=== PATIENT | female | born 1985 | race African-American/Black ===

== ENCOUNTER 2017-08-12 21:14 | Emergency (ER) | payer OTHER ==
[2017-08-12 21:55] VITALS: BP 148/82; PULSE 99; TEMP 98.1; BMI 27.4
--- NOTE | 2017-08-12 21:55 | PDOC ---
Rapid Medical Evaluation Time Seen by Provider: 08/12/17 21:49 Medical Evaluation: Allergies Allergy/AdvReac Type Severity Reaction Status Date / Time No Known Allergies Allergy Verified 05/11/16 17:07 I have performed a brief in-person evaluation of this patient. The patient presents with a chief complaint of: sore throat radiating to left ear x 3 days Pertinent physical exam findings: b/l tonsillar erythema and edema with exudate. Tender anterior cervical lymphadenopathy. I have ordered the following: None. Will discharge to home with rx for Pen VK to treat clinically diagnosed strep. Pt instructed to continue gargling with salt water, take Motrin for pain and eat soft foods until feeling better. The patient will proceed to the ED for further evaluation. Discharge Disposition - Diagnosis Strep pharyngitis - Discharge Dispostion Disposition: HOME Condition at time of disposition: Good - Referrals Referrals: Joseline Eastman [Primary Care Provider] - - Patient Instructions Printed Discharge Instructions: DI for Strep Throat Additional Instructions: Discharge Instructions: -A prescription was sent to your pharmacy to treat strep throat; please take entire course of antibiotics. -Continue gargling with warm salt water -Take Motrin for pain if needed -Eat soft/cold foods -Throw away your toothbrush and get a new one -Return to the ER with any worsening or concerning symptoms - Post Discharge Activity
== END 2017-08-12 22:06 | disposition home or self-care (01) ==
LOC: JERFT 21:14
DX: J02.0 Streptococcal pharyngitis (principal); B95.5 Unspecified streptococcus as the cause of diseases classified elsewhere
CPT/HCPCS: 99281-25

== ENCOUNTER 2018-04-10 13:49 | Emergency (ER) | payer OTHER ==
[2018-04-10 13:59] VITALS: BP 147/80; PULSE 110; TEMP 98.4; BMI 26.6
--- NOTE | 2018-04-10 15:25 | PDOC ---
History of Present Illness - General Chief Complaint: Pain Stated Complaint: ABD PAIN Time Seen by Provider: 04/10/18 15:01 - History of Present Illness Initial Comments: 04/10/18 15:23 33 yo F with no significant pmh who p/w mid-abdominal pain. Patient reports two days of nausea with intermittent bilious, non bloody vomiting, and multiple episodes of loose watery stool. No BPR. + Decreased PO intake. Also endorses 2 days of crampy, intermittent, mid abdominal and mid epigastria pain, with no identifiable triggers or alleviators. Patient denies F,C, CP, SOB, urinary complaints, hematuria, vaginal bleeding, discharge, constipation, lightheadedness, weakness, sensory changes. PMHx: as noted above. Denies h/o abdominal surgeries. ROS: as noted SHx: Denies Etoh, tobacco, IVDA. Allergies: NKDA Past History - Past Medical History Allergies/Adverse Reactions: Allergies Allergy/AdvReac Type Severity Reaction Status Date / Time No Known Allergies Allergy Verified 04/10/18 13:59 Home Medications: Ambulatory Orders Penicillin V Potassium [Pen Vee K -] 500 mg PO BID #20 tablet 08/12/17 Mag Hydrox/Al Hydrox/Simeth [Mylanta *Suspension*] 30 ml PO Q6H #6 cup MDD 30 ml 04/10/18 Ranitidine HCl [Zantac] 150 mg PO PRN PRN 14 Days #28 tablet MDD 2 tab 04/10/18 COPD: No - Suicide/Smoking/Psychosocial Hx Smoking Status: Yes Smoking History: Former smoker Have you smoked in the past 12 months: No Number of Cigarettes Smoked Daily: 3 If you are a former smoker, when did you quit?: 2017 Information on smoking cessation initiated: No Hx Alcohol Use: No Drug/Substance Use Hx: No Review of Systems - Review of Systems Comments:: 04/10/18 15:24 GENERAL/CONSTITUTIONAL: No fever or chills. No weakness. HEAD, EYES, EARS, NOSE AND THROAT: No change in vision. No ear pain or discharge. No sore throat. CARDIOVASCULAR: No chest pain or shortness of breath RESPIRATORY: No cough, wheezing, or hemoptysis. GASTROINTESTINAL: + Abdominal pain, nausea/vomiting, and diarrhea. No constipation. GENITOURINARY: No dysuria, frequency, or change in urination. MUSCULOSKELETAL: No joint or muscle swelling or pain. No neck or back pain. SKIN: No rash NEUROLOGIC: No headache, vertigo, loss of consciousness, or change in strength/ sensation. ENDOCRINE: No increased thirst. No abnormal weight change HEMATOLOGIC/LYMPHATIC: No anemia, easy bleeding, or history of blood clots. ALLERGIC/IMMUNOLOGIC: No hives or skin allergy. *Physical Exam - Vital Signs Last Vital Signs Temp Pulse Resp BP Pulse Ox 98.4 F 110 H 20 147/80 99 04/10/18 13:57 04/10/18 13:57 04/10/18 13:57 04/10/18 13:57 04/10/18 13:57 - Physical Exam Comments: 04/10/18 15:24 GENERAL: Awake, alert, and fully oriented, in no acute distress HEAD: No signs of trauma, normocephalic, atraumatic EYES: PERRLA, EOMI, sclera anicteric, conjunctiva clear ENT: Hearing grossly normal, nares patent, oropharynx clear without exudates. Moist mucosa NECK: Normal ROM, supple, no lymphadenopathy, JVD, or masses LUNGS: No distress, speaks full sentences, clear to auscultation bilaterally HEART: Regular rate and rhythm, normal S1 and S2, no murmurs, rubs or gallops, peripheral pulses normal and equal bilaterally. ABDOMEN: Soft, nontender, normoactive bowel sounds. No guarding, no rebound. No masses. Neg CVA ttp. EXTREMITIES : Normal inspection, Normal range of motion, no edema. No clubbing or cyanosis. SKIN: Warm, Dry, normal turgor, no rashes or lesions noted ED Treatment Course - LABORATORY CBC & Chemistry Diagram: 04/10/18 16:25 04/10/18 16:25 Medical Decision Making - Medical Decision Making 04/10/18 15:54 33 yo F with no significant pmh who p/w mid-abdominal pain, and nausea. HR 110, vtials otherwise wnl, AF. Benign abdominal exam. Low suspiicon SBO. Possible gastritis, esophagitis, biliary pathology. Low suspicion appendicitis, pancreatitis, colitis, diverticulitis, urinary pathology, mesenteric ischemia, AAA. Will provide pain control, antiemetic control, and IVF hydration. ED Course: CBC,CMP, Lipase, Trop, HCG, UA EKG Famotidine, Zofran, Maloox, Carafate, Tylenol 04/10/18 16:56 Mylanta and Ranitidine sent to pharmacy. CBC: Unremarkable 04/10/18 17:04 CMP: Unremarkable HCG: Neg Patient stable for d/c with return precautions. Advised to f/u with PMD and GI. *DC/Admit/Observation/Transfer Diagnosis at time of Disposition: Epigastric abdominal pain - Discharge Dispostion Disposition: ELOPED Condition at time of disposition: Stable Decision to Admit order: No - Prescriptions Prescriptions: Mag Hydrox/Al Hydrox/Simeth [Mylanta *Suspension*] 30 ml PO Q6H #6 cup MDD 30 ml Ranitidine HCl [Zantac] 150 mg PO PRN PRN 14 Days #28 tablet MDD 2 tab PRN Reason: Indigestion - Referrals Referrals: Afshin Eastman MD [Primary Care Provider] - Koko Rowell MD [Staff Physician] - - Patient Instructions Printed Discharge Instructions: DI for Dyspepsia Additional Instructions: Please return to the emergency department with any new or worsening symptoms or concerns. Please follow up with your primary care physician within 72 hours. Please follow up with gastroenteroology within one week. Please take Mylanta and Ranitidine as needed for symptoms. - Post Discharge Activity - Attestations Physician Attestion: 04/10/18 16:57 I attest to the information provided in this note.
[2018-04-10] MEDS ORDERED: ACETAMINOPHEN 1000 MG/100 ML VIAL (NON FORMULARY) IVPB ONE (15:47)
[2018-04-10] MEDS ORDERED: SODIUM CHLORIDE 1,000 ML IV STA (15:47)
[2018-04-10] MEDS ORDERED: FAMOTIDINE 20 MG/50 ML IVPB 20 MG/50 ML MG IVPB ONE ×2 (15:47→16:05)
[2018-04-10] MEDS ORDERED: SUCRALFATE 1 GM TABLET (FP) PO ONE (15:47)
[2018-04-10] MEDS ORDERED: MAG HYDROX/AL HYDROX/SIMETH 30 ML UNIT-DOSE CUP PO ONE (15:47)
[2018-04-10] MEDS ORDERED: ONDANSETRON 4 MG/2 ML VIAL IVPB ONE (15:54)
[2018-04-10] MEDS ORDERED: ONDANSETRON 4 MG/2 ML VIAL ONE (16:05)
[2018-04-10] MEDS ORDERED: ACETAMINOPHEN INJECTION 100 ML IVPB ONE (16:05)
[2018-04-10] MEDS ORDERED: SUCRALFATE 1 GM TABLET (FP) ONE (16:05)
[2018-04-10] MEDS ORDERED: MAG HYDROX/AL HYDROX/SIMETH 30 ML UNIT-DOSE CUP ONE (16:05)
[2018-04-10 16:34] LABS: BASO % 0.8 % (0-2.0); EOS % 0.8 % (0-4.5); HEMATOCRIT 37.5 % (32.4-45.2); HEMOGLOBIN 13.1 GM/dL (10.7-15.3); MCH 32.8 pg (25.7-33.7); MCHC 34.8 g/dl (32.0-36.0); MEAN CELL VOLUME 94.1 fl (80-96); MEAN PLT VOLUME 8.1 fl (7.5-11.1); NEUT % 62.4 % (42.8-82.8); PLATELET COUNT 217 K/MM3 (134-434); RBC 3.99 M/mm3 (3.60-5.2); RDW 12.6 % (11.6-15.6)
[2018-04-10 16:38] LABS: HCG,QUALITATIVE URINE Negative
--- NOTE | 2018-04-10 16:57 | PDOC ---
Attending Attestation - Resident Resident Name: Christopher Sawant - ED Attending Attestation I have performed the following: I have examined & evaluated the patient, The case was reviewed & discussed with the resident, I agree w/resident's findings & plan, Exceptions are as noted - HPI HPI: 04/10/18 16:53 33-year-old female with no past medical history presents with 2 days of nausea, vomiting, diarrhea. Patient reports associated abdominal cramping but denies abdominal pain now. No fevers or chills. Patient ate some spaghetti which she thinks may have made her sick. Currently denies recent travels, recent travels or recent sick contacts. - Physicial Exam PE: 04/10/18 16:55 GENERAL: Awake, alert, and fully oriented, in no acute distress HEAD: No signs of trauma EYES: EOMI, sclera anicteric, conjunctiva clear ENT: Auricles normal inspection, hearing grossly normal, nares patent NECK: Normal ROM, supple ABDOMEN: Soft, nontender, No guarding, no rebound. No masses EXTREMITIES: Normal range of motion, no edema. No clubbing or cyanosis. No cords, erythema, or tenderness NEUROLOGICAL: Cranial nerves II through XII grossly intact. Normal speech, normal gait SKIN: Warm, Dry, normal turgor, no rashes or lesions noted. - Medical Decision Making 04/10/18 16:56 Vital Signs Temp Pulse Resp BP Pulse Ox 98.4 F 110 H 20 147/80 99 04/10/18 13:57 04/10/18 13:57 04/10/18 13:57 04/10/18 13:57 04/10/18 13:57 I suspect patient likely has food poisoning versus gastroenteritis. Patient's abdomen is nontender. Give IV fluids and obtain blood work. Membranes test negative. His workup is unremarkable, patient can go home with supportive care and follow-up with primary care physician. 04/10/18 17:37 CBC, BMP 04/10/18 16:25 04/10/18 16:25 CMP Sodium 142 mmol/L (136-145) 04/10/18 16:25 Potassium 3.8 mmol/L (3.5-5.1) 04/10/18 16:25 Chloride 108 mmol/L (98-107) H 04/10/18 16:25 Carbon Dioxide 26 mmol/L (21-32) 04/10/18 16:25 Anion Gap 8 MMOL/L (8-16) 04/10/18 16:25 BUN 8 mg/dL (7-18) 04/10/18 16:25 Creatinine 0.7 mg/dL (0.55-1.02) 04/10/18 16:25 Creat Clearance w eGFR > 60 (>60) 04/10/18 16:25 Random Glucose 114 mg/dL (74-106) H 04/10/18 16:25 Calcium 8.8 mg/dL (8.5-10.1) 04/10/18 16:25 Total Bilirubin 0.3 mg/dL (0.2-1.0) 04/10/18 16:25 AST 10 U/L (15-37) L 04/10/18 16:25 ALT 14 U/L (12-78) 04/10/18 16:25 Alkaline Phosphatase 46 U/L (45-117) 04/10/18 16:25 Troponin I < 0.02 ng/ml (0.00-0.05) 04/10/18 16:25 Total Protein 7.5 g/dl (6.4-8.2) 04/10/18 16:25 Albumin 4.0 g/dl (3.4-5.0) 04/10/18 16:25 Lipase 194 U/L (73-393) 04/10/18 16:25 Urine Test Results Urine Color Ltyellow 04/10/18 16:25 Urine Appearance Clear 04/10/18 16:25 Urine pH 6.0 (5.0-8.0) 04/10/18 16:25 Ur Specific [place] 1.008 (1.001-1.035) 04/10/18 16:25 Urine Protein Negative (NEGATIVE) 04/10/18 16:25 Urine Glucose (UA) Negative (NEGATIVE) 04/10/18 16:25 Urine Ketones Negative (NEGATIVE) 04/10/18 16:25 Urine Blood Negative (NEGATIVE) 04/10/18 16:25 Urine Nitrite Negative (NEGATIVE) 04/10/18 16:25 Urine Bilirubin Negative (<2.0 mg/dL) 04/10/18 16:25 Ur Leukocyte Esterase Negative (NEGATIVE) 04/10/18 16:25
[2018-04-10 17:03] LABS: ALK PHOS 46 U/L (45-117); ANION GAP 8 MMOL/L (8-16); BILIRUBIN,TOTAL 0.3 mg/dL (0.2-1.0); BLOOD UREA NITROGEN 8 mg/dL (7-18); CALCIUM 8.8 mg/dL (8.5-10.1); CHLORIDE 108 mmol/L (98-107); CO2 26 mmol/L (21-32); CREATININE 0.7 mg/dL (0.55-1.02); GLUCOSE,RANDOM 114 mg/dL (74-106); POTASSIUM 3.8 mmol/L (3.5-5.1); SGOT/AST 10 U/L (15-37); SGPT/ALT 14 U/L (12-78); SODIUM 142 mmol/L (136-145); TOT PROT 7.5 g/dl (6.4-8.2)
[2018-04-10 17:09] LABS: LIPASE 194 U/L (73-393)
[2018-04-10 17:29] LABS: URINE APPEARANCE CLEAR; URINE BILIRUBIN NEGATIVE (<2.0 mg/dL); URINE COLOR LTYELLOW; URINE GLUCOSE (UA) NEGATIVE (NEGATIVE); URINE KETONE NEGATIVE (NEGATIVE); URINE LEUK ESTERASE NEGATIVE (NEGATIVE); URINE NITRITE NEGATIVE (NEGATIVE); URINE PROTEIN NEGATIVE (NEGATIVE); URINE UROBILINOGEN NEGATIVE mg/dL (0.2-1.0)
== END 2018-04-10 17:45 | disposition left against medical advice (07) ==
LOC: JER 13:49
PROC: 3E033GC Introduction of Other Therapeutic Substance into Peripheral Vein, Percutaneous Approach (ICD-10-PCS; principal; 2018-04-10)
PROC: 3E033GC Introduction of Other Therapeutic Substance into Peripheral Vein, Percutaneous Approach (ICD-10-PCS; 2018-04-10)
PROC: 3E033NZ Introduction of Analgesics, Hypnotics, Sedatives into Peripheral Vein, Percutaneous Approach (ICD-10-PCS; 2018-04-10)
DX: R10.13 Epigastric pain (principal)
CPT/HCPCS: 36415; 80053; 81003; 83690; 84484; 84703; 85025; 96365; 96375; 99282-25; J0131; J7030

== ENCOUNTER 2018-08-05 21:52 | Emergency (ER) | payer OTHER ==
[2018-08-05 22:05] VITALS: BP 138/80; PULSE 96; TEMP 98.1; BMI 27.4
--- NOTE | 2018-08-05 22:34 | PDOC ---
Attending Attestation - HPI HPI: 08/05/18 22:49 The patient is a 33 year old female, with no significant past medical history, who presents to the emergency department with nausea, vomiting, and diarrhea since 12pm today. She states the symptoms progressed gradually since onset with nausea being the initial symptom. She reports 3 episodes of emesis. She denies blood in the emesis or diarrhea. She reports associated chills. She states her coworkers have been sick with similar symptoms. LMP Jul 11, 2018. The patient denies chest pain, shortness of breath, headache and dizziness. The patient denies fever, and constipation. The patient denies dysuria, frequency, urgency and hematuria. Allergies: NKDA - Physicial Exam PE: 08/05/18 22:49 Constitutional: (+) tearful. Awake, alert, oriented. No acute distress. Head: Normocephalic. Atraumatic Eyes: PERRL. EOMI. Conjunctivae are not pale. ENT: Mucous membranes are moist and intact. Posterior pharynx without exudates or erythema. Uvula midline. Neck: Supple. Full ROM. No lymphadenopathy. Cardiovascular: (+) tachycardic rate. Regular rhythm. S1, S2 regular. Distal pulses are 2+ and symmetric. Pulmonary/Chest: No evidence of respiratory distress. Clear to auscultation bilaterally No wheezing, rales or rhonchi. Abdominal: Soft and non-distended. There is no tenderness. No rebound, guarding or rigidity. No organomegaly. No palpable masses. Good bowel sounds. Back: No CVA tenderness. Musculoskeletal: No edema. No cyanosis. No clubbing. Full range of motion in all extremities. Nocalf tenderness. Radial/pedal pulses are intact and 2+ bilaterally Skin: Skin is warm and dry. No petechiae. No purpura. Neurological: Alert and oriented to person, place, and time. Cranial nerves II -XII are grossly intact. Normal speech. Strength is grossly symmetric. No sensory deficits. Psychiatric: Good eye contact. Normal interaction, affect and behavior. - Medical Decision Making 08/05/18 22:50 Documentation prepared by Rosalee Suresh, acting as medical supply technician for Corrina Lucas DO, <Rosalee Suresh - Last Filed: 08/05/18 22:57> - Resident Resident Name: Juan Pablo Mabry - ED Attending Attestation I have performed the following: I have examined & evaluated the patient, The case was reviewed & discussed with the resident, I agree w/resident's findings & plan, Exceptions are as noted - Medical Decision Making 08/05/18 22:33 I, Dr. Corrina Lucas, DO, attest that this document has been prepared under my direction and personally reviewed by me in its entirety. I further attest, that it accurately reflects all work, treatment, procedures and medical decision -making performed by me. 08/05/18 23:02 a/p: 33yo female with n/v and diarrhea today -other sick contacts at her job -all symptoms started today - first with diarrhea and then n/v tonight -no abd pain -suspect viral gastroenteritis -will send labs, hydrate, zofran -abd is soft and nontender -will monitor and reassess 08/06/18 00:52 pt feeling much better no nausea or vomiting discussed lab results stable for d/c to home discussed all reasons to return to the Ed abd soft, nt <Corrina Lucas - Last Filed: 08/06/18 00:55> *DC/Admit/Observation/Transfer - Discharge Dispostion Decision to Admit order: No <Corrina Lucas - Last Filed: 08/06/18 00:55> Diagnosis at time of Disposition: Nausea Vomiting Qualifiers: Vomiting type: unspecified Vomiting Intractability: unspecified Nausea presence : unspecified Qualified Code(s): R11.10 - Vomiting, unspecified - Discharge Dispostion Disposition: HOME Condition at time of disposition: Stable - Prescriptions Prescriptions: Cephalexin [Keflex] 500 mg PO BID #6 capsule Famotidine [Pepcid -] 20 mg PO DAILY #14 tablet Ondansetron [Zofran Odt -] 4 mg SL TID PRN #15 od.tablet PRN Reason: Nausea - Referrals Referrals: Joseline Eastman [Primary Care Provider] - - Patient Instructions Printed Discharge Instructions: DI for Vomiting -- Adult, DI for Nausea -- Adult Additional Instructions: you were seen in the emergency department for the evaluation of your nausea, vomiting, and diarrhea. your labs were within normal limits and your urine showed an infection. we gave you fluids and anti-nausea medications in the department. please follow up with your primary medical doctor within 1 week after discharge for follow up care and management. please return to the emergency department if you have fevers and chills with urinary pain, new abdominal pain with fevers and chills, and uncontrollable nausea and vomiting. thank you. Please drink plenty of clear liquids for the first 24 hours and then a bland diet of bananas, rice, apple sauce, and toast - Post Discharge Activity
--- NOTE | 2018-08-05 22:38 | PDOC ---
History of Present Illness - General Chief Complaint: Nausea/Vomiting Stated Complaint: VOMITING/DIARRHEA Time Seen by Provider: 08/05/18 22:25 History Source: Patient Exam Limitations: No Limitations - History of Present Illness Initial Comments: 08/05/18 22:46 33 yo F with no past medical hx presents to the emergency department with nausea , vomiting, and diarrhea that began at 9 pm. Earlier today, the patient was feeling poor appetite and became nauseous at 12 pm. She had 3x NBNB emesis episodes at 9 pm with a diarrhea episode without hematochezia. Denies the following: fevers, ears/nose/throat pain, visual changes, headaches, SOB, chest pain, abdominal pain, dysuria, hematuria, hematochezia, vaginal bleeding/ discharge, leg pain/swelling, and lightheadedness. Endorses sick contacts at her work place. LMP was 07/11/2018, regular, and does not use contraceptives. Pmhx: None Shx: None Meds: None Allergies: NKDA Social: Denies tobacco, alcohol, and substance abuse. Past History - Past Medical History Allergies/Adverse Reactions: Allergies Allergy/AdvReac Type Severity Reaction Status Date / Time No Known Allergies Allergy Verified 08/05/18 22:02 Home Medications: Ambulatory Orders Penicillin V Potassium [Pen Vee K -] 500 mg PO BID #20 tablet 08/12/17 Mag Hydrox/Al Hydrox/Simeth [Mylanta *Suspension*] 30 ml PO Q6H #6 cup MDD 30 ml 04/10/18 Ranitidine HCl [Zantac] 150 mg PO PRN PRN 14 Days #28 tablet MDD 2 tab 04/10/18 COPD: No - Suicide/Smoking/Psychosocial Hx Smoking Status: Yes Smoking History: Former smoker Have you smoked in the past 12 months: No Number of Cigarettes Smoked Daily: 3 If you are a former smoker, when did you quit?: 2013 Information on smoking cessation initiated: No Hx Alcohol Use: No Drug/Substance Use Hx: No Review of Systems - Review of Systems Able to Perform ROS?: Yes Is the patient limited German proficient: No Constitutional: Yes: Chills. No: Diaphoresis, Fever, Weakness HEENTM: No: Eye Pain, Recent change in vision, Ear Pain, Nose Pain, Throat Pain , Mouth Pain Respiratory: No: Cough, Shortness of Breath, SOB with Exertion, Hemoptysis Cardiac (ROS): No: Chest Pain, Lightheadedness, Palpitations, Syncope, Chest Tightness ABD/GI: Yes: Diarrhea, Nausea, Poor Appetite, Poor Fluid Intake, Vomiting. No: Constipated, Rectal Bleeding, Indigestion, Tarry Stools : No: Burning, Dysuria, Flank Pain, Hematuria, Pain Musculoskeletal: No: Back Pain, Gout, Joint Pain, Neck Pain Integumentary: No: Bruising, Erythema, Lesions, Lumps, Rash Neurological: No: Headache, Numbness, Tingling, Tremors, Ataxia, Dizziness Psychiatric: No: Stressors Endocrine: No: Unexplained Weight Gain Hematologic/Lymphatic: No: Anemia *Physical Exam - Vital Signs Last Vital Signs Temp Pulse Resp BP Pulse Ox 98.1 F 96 H 20 138/80 100 08/05/18 22:02 08/05/18 22:02 08/05/18 22:02 08/05/18 22:02 08/05/18 22:02 - Physical Exam General Appearance: Yes: Nourished, Appropriately Dressed. No: Apparent Distress, Intoxicated HEENT: positive: EOMI, UMESH, Normal Voice, Symmetrical, Pharynx Normal, Hearing Grossly Normal. negative: Pale Conjunctivae, Scleral Icterus (R), Scleral Icterus (L), Muffled/Hoarse voice, Pharyngeal Erythema, Tonsillar Exudate, Tonsillar Erythema, Nasal Congestion, Sinus Tenderness, Excessive drooling Neck: positive: Trachea midline. negative: Tender, Lymphadenopathy (R), Lymphadenopathy (L), Tender lateral, Tender midline Respiratory/Chest: positive: Lungs Clear, Normal Breath Sounds. negative: Chest Tender, Respiratory Distress, Accessory Muscle Use, Crackles, Rales, Rhonchi, Stridor, Wheezing, Hyperresonant Cardiovascular: positive: Regular Rhythm, Regular Rate, S1, S2. negative: Systolic Murmur Gastrointestinal/Abdominal: positive: Normal Bowel Sounds, Flat, Soft. negative : Tender Lymphatic: negative: Adenopathy Musculoskeletal: positive: Normal Inspection. negative: CVA Tenderness, Vertebral Tenderness Extremity: positive: Normal Capillary Refill, Normal Inspection, Normal Range of Motion. negative: Tender Integumentary: positive: Normal Color, Dry, Warm Neurologic: positive: machine hamper maker II-XII NML intact, Fully Oriented, Alert, Normal Mood/ Affect, Normal Response, Motor Strength 5/5. negative: EOM Palsy, Sensory Deficit Moderate Sedation - Procedure Monitoring Vital Signs: Procedure Monitoring Vital Signs Temperature 98.1 F 08/05/18 22:02 Pulse Rate 96 H 08/05/18 22:02 Respiratory Rate 20 08/05/18 22:02 Blood Pressure 138/80 08/05/18 22:02 O2 Sat by Pulse Oximetry (%) 100 08/05/18 22:02 ED Treatment Course - LABORATORY CBC & Chemistry Diagram: 08/05/18 23:17 08/05/18 23:17 Medical Decision Making - Medical Decision Making 08/05/18 23:33 33 yo F with no past medical hx presents to the emergency department with nausea , vomiting, and diarrhea that began at 9 pm. Initial vitals: Initial Vital Signs Temp Pulse Resp BP Pulse Ox 98.1 F 96 H 20 138/80 100 08/05/18 22:02 08/05/18 22:02 08/05/18 22:02 08/05/18 22:02 08/05/18 22:02 WOrk up: ddx: influenza, gastroenteritis vs (1st trimester) vs URI Signed out patient to Dr. Guy 08/06/18 00:10 *DC/Admit/Observation/Transfer Diagnosis at time of Disposition: Nausea Vomiting Qualifiers: Vomiting type: unspecified Vomiting Intractability: unspecified Nausea presence : unspecified Qualified Code(s): R11.10 - Vomiting, unspecified - Discharge Dispostion Disposition: HOME Decision to Admit order: No - Referrals Referrals: Joseline Eastman [Primary Care Provider] - - Patient Instructions Additional Instructions: you were seen in the emergency department for the evaluation of your nausea, vomiting, and diarrhea. your labs were within normal limits and your urine showed an infection. we gave you fluids and anti-nausea medications in the department. please follow up with your primary medical doctor within 1 week after discharge for follow up care and management. please return to the emergency department if you have fevers and chills with urinary pain, new abdominal pain with fevers and chills, and uncontrollable nausea and vomiting. thank you. - Post Discharge Activity
[2018-08-05] MEDS ORDERED: SODIUM CHLORIDE 1,000 ML IV STA (22:53)
[2018-08-05] MEDS ORDERED: ONDANSETRON 4 MG/2 ML VIAL IVPUSH ONE (22:53)
[2018-08-05 23:24] LABS: BASO % 0.3 % (0-2.0); EOS % 0.1 % (0-4.5); HEMOGLOBIN 13.4 GM/dL (10.7-15.3); LYMPH % 9.2 % (8-40); MCHC 35.2 g/dl (32.0-36.0); MEAN CELL VOLUME 93.8 fl (80-96); MEAN PLT VOLUME 8.4 fl (7.5-11.1); MONO % 5.3 % (3.8-10.2); NEUT % 85.1 % (42.8-82.8); PLATELET COUNT 205 K/MM3 (134-434); RBC 4.05 M/mm3 (3.60-5.2); RDW 12.9 % (11.6-15.6)
[2018-08-05 23:28] LABS: HCG,QUALITATIVE URINE Negative; URINE APPEARANCE SLCLOUDY; URINE BILIRUBIN NEGATIVE (<2.0 mg/dL); URINE COLOR LTYELLOW; URINE GLUCOSE (UA) NEGATIVE (NEGATIVE); URINE KETONE 1+ (NEGATIVE); URINE LEUK ESTERASE 2+ (NEGATIVE); URINE NITRITE NEGATIVE (NEGATIVE); URINE PROTEIN NEGATIVE (NEGATIVE)
[2018-08-05 23:33] LABS: EPI CELLS MODERATE /HPF (FEW); URINE MUCUS RARE
[2018-08-05] MEDS ORDERED: CEFTRIAXONE 1 GM in DEXTROSE 5%-WATER - 100 ML IVPB ONE (23:43)
--- NOTE | 2018-08-05 23:57 | PDOC ---
*Physical Exam - Vital Signs Last Vital Signs Temp Pulse Resp BP Pulse Ox 98.1 F 96 H 20 138/80 100 08/05/18 22:02 08/05/18 22:02 08/05/18 22:02 08/05/18 22:02 08/05/18 22:02 ED Treatment Course - LABORATORY CBC & Chemistry Diagram: 08/05/18 23:17 08/05/18 23:17 - ADDITIONAL ORDERS Additional order review: Laboratory Results 08/05/18 23:17 Urine Color Ltyellow Urine Appearance Slcloudy Urine pH 6.0 Ur Specific [place] 1.016 Urine Protein Negative Urine Glucose (UA) Negative Urine Ketones 1+ H Urine Blood Negative Urine Nitrite Negative Urine Bilirubin Negative Urine Urobilinogen 2.0 H Ur Leukocyte Esterase 2+ H Urine WBC (Auto) 5 Urine RBC (Auto) 1 Ur Epithelial Cells Moderate Urine Mucus Rare Urine HCG, Qual Negative 08/05/18 23:17 RBC 4.05 MCV 93.8 MCHC 35.2 RDW 12.9 MPV 8.4 Neutrophils % 85.1 H D Lymphocytes % 9.2 D Monocytes % 5.3 Eosinophils % 0.1 D Basophils % 0.3 Medical Decision Making - Medical Decision Making 08/06/18 00:[address] Mabry Briefly, patient is a 33 year old female with no PMHx who presented to the ED complaining of nausea, vomiting, and diarrhea that acutely began this evening around 2100. -CBC unremarkable -CMP pending -Dose of Zofran ordered -Will give fluids -Reassess and likely discharge 08/06/18 00:55 -Patient CMP wnl -Reports feeling better -Will D/C with Keflex *DC/Admit/Observation/Transfer Diagnosis at time of Disposition: Nausea Vomiting Qualifiers: Vomiting type: unspecified Vomiting Intractability: unspecified Nausea presence : unspecified Qualified Code(s): R11.10 - Vomiting, unspecified - Discharge Dispostion Disposition: HOME - Prescriptions Prescriptions: Cephalexin [Keflex] 500 mg PO BID #6 capsule Famotidine [Pepcid -] 20 mg PO DAILY #14 tablet Ondansetron [Zofran Odt -] 4 mg SL TID PRN #15 od.tablet PRN Reason: Nausea - Referrals Referrals: Joseline Eastman [Primary Care Provider] - - Patient Instructions Additional Instructions: you were seen in the emergency department for the evaluation of your nausea, vomiting, and diarrhea. your labs were within normal limits and your urine showed an infection. we gave you fluids and anti-nausea medications in the department. please follow up with your primary medical doctor within 1 week after discharge for follow up care and management. please return to the emergency department if you have fevers and chills with urinary pain, new abdominal pain with fevers and chills, and uncontrollable nausea and vomiting. thank you. - Post Discharge Activity
[2018-08-06] MEDS ORDERED: CEFTRIAXONE 1 GM/50 ML BAG ONE (00:16)
[2018-08-06] MEDS ORDERED: ONDANSETRON 4 MG/2 ML VIAL ONE (00:16)
[2018-08-06 00:49] LABS: ALBUMIN 3.8 g/dl (3.4-5.0); ALK PHOS 43 U/L (45-117); ANION GAP 6 MMOL/L (8-16); BILIRUBIN,TOTAL 0.4 mg/dL (0.2-1); BLOOD UREA NITROGEN 10 mg/dL (7-18); CALCIUM 8.7 mg/dL (8.5-10.1); CHLORIDE 106 mmol/L (98-107); CO2 25 mmol/L (21-32); CREATININE 0.8 mg/dL (0.55-1.3); GLUCOSE,RANDOM 107 mg/dL (74-106); LIPASE 187 U/L (73-393); POTASSIUM 3.4 mmol/L (3.5-5.1); SGOT/AST 16 U/L (15-37); SGPT/ALT 15 U/L (13-61); SODIUM 137 mmol/L (136-145); TOT PROT 6.9 g/dl (6.4-8.2)
[2018-08-06] MEDS ORDERED: POTASSIUM CHLORIDE TABS 20 MEQ TABLET.ER (FP) PO ONE ×2 (00:49→01:01)
== END 2018-08-06 01:07 | disposition home or self-care (01) ==
LOC: JER 21:52
PROC: 3E0337Z Introduction of Electrolytic and Water Balance Substance into Peripheral Vein, Percutaneous Approach (ICD-10-PCS; principal; 2018-08-05)
PROC: 3E03329 Introduction of Other Anti-infective into Peripheral Vein, Percutaneous Approach (ICD-10-PCS; 2018-08-05)
PROC: 3E033GC Introduction of Other Therapeutic Substance into Peripheral Vein, Percutaneous Approach (ICD-10-PCS; 2018-08-05)
DX: N39.0 Urinary tract infection, site not specified (principal); A08.4 Viral intestinal infection, unspecified; B97.89 Other viral agents as the cause of diseases classified elsewhere
CPT/HCPCS: 36415; 80053; 81003; 81015; 83690; 84703; 85025; 87086; 87804; 99281-25; J7030

== ENCOUNTER 2019-02-06 16:55 | Emergency (ER) | payer SELFPAY ==
[2019-02-06 17:02] VITALS: TEMP 99.2; BMI 25.5
--- NOTE | 2019-02-06 17:33 | PDOC ---
History of Present Illness - General Chief Complaint: Diarrhea Stated Complaint: DIARRHEA Time Seen by Provider: 02/06/19 17:32 History Source: Patient - History of Present Illness Initial Comments: 02/06/19 17:45 The patient is a 33 year old female with a PMH of GERD who presents to our ED today c/o 1 day h/o diarrhea and mild abdominal cramping. Symptom started yesterday after breakfast and patient states she was on the toilet all day. Mild intermittent abdominal cramping. Less watery stool today, however patient only tolerating liquid PO intake and concerned because while brushing her teeth she spit up some whitish colored sputum. LMP was January 12. NKDA Past History - Past Medical History Allergies/Adverse Reactions: Allergies Allergy/AdvReac Type Severity Reaction Status Date / Time No Known Allergies Allergy Verified 02/06/19 17:02 Home Medications: Ambulatory Orders Ranitidine HCl [Zantac] 150 mg PO PRN PRN 14 Days #28 tablet MDD 2 tab 04/10/18 Nitrofurantoin Monohyd/M-Cryst [Macrobid -] 100 mg PO BID 5 Days #10 capsule COPD: No - Suicide/Smoking/Psychosocial Hx Smoking Status: Yes Smoking History: Never smoked Have you smoked in the past 12 months: No Number of Cigarettes Smoked Daily: 3 If you are a former smoker, when did you quit?: 2013 Hx Alcohol Use: No Drug/Substance Use Hx: No Review of Systems - Review of Systems Constitutional: No: Chills, Fever Respiratory: No: Cough, Shortness of Breath Cardiac (ROS): No: Chest Pain, Lightheadedness, Palpitations, Syncope ABD/GI: Yes: Diarrhea, Nausea, Vomiting, Abdominal cramping. No: Constipated, Rectal Bleeding : No: Burning, Dysuria *Physical Exam - Vital Signs Last Vital Signs Temp Pulse Resp BP Pulse Ox 99.2 F 101 H 20 136/76 99 02/06/19 17:00 02/06/19 17:00 02/06/19 17:00 02/06/19 17:00 02/06/19 17:00 - Physical Exam Comments: 02/06/19 17:47 General: awake, alert, well appearing Abdomen: soft, non-tender, no hernia/mass, (+) bowel sounds, no CVAT B/L CV: S1, S2, RRR Respiratory: CLTA B/L, no wheeze/crackle Neuro: A&O x3, CN II-XII intact ED Treatment Course - LABORATORY CBC & Chemistry Diagram: 02/06/19 18:00 02/06/19 18:00 Medical Decision Making - Medical Decision Making 02/06/19 17:48 33 year old non-toxic appearing female with diarrhea. VS unremarkable Belly exam benign Frontal Diagnosis: gastritis, gastroenteritis, cystitis/pyelonephritis, GERD/PUD , . Will give IV fluids, GI cocktail, check . Reassess. 02/06/19 18:48 UA shows 2+ Leukocyte Esterase; 185 Bacteria - no complaints, ? clean catch - will treat with 5 day course of Macrobid No leukocytosis CMP, Serum pending 02/06/19 19:05 Serum negative CMP unremarkable. Will discharge home with return precautions and PMD follow-up for further evaluation. I discussed the physical exam findings, ancillary test results and final diagnoses with the patient. I answered all of the patient's questions. The patient was satisfied with the care received and felt comfortable with the discharge plan and treatment plan. The patient will return to the Emergency Department with any new, persistent or worsening symptoms. *DC/Admit/Observation/Transfer Diagnosis at time of Disposition: Diarrhea - Discharge Dispostion Disposition: HOME Condition at time of disposition: Improved Decision to Admit order: Yes - Prescriptions Prescriptions: Nitrofurantoin Monohyd/M-Cryst [Macrobid -] 100 mg PO BID 5 Days #10 capsule - Referrals - Patient Instructions Additional Instructions: Follow up with your primary care doctor in the next 1 week. We have sent a prescription to your pharmacy. Please take the entire antibiotic course as prescribed. Return to the Emergency Department for any new/worsening/concerning symptoms. - Post Discharge Activity
[2019-02-06] MEDS ORDERED: MAG HYDROX/AL HYDROX/SIMETH -MYLANTA- ORAL SUSPENSION PO ONE (17:42)
[2019-02-06] MEDS ORDERED: SODIUM CHLORIDE 0.9% 500 ML INFUS.BAG IV ONE (17:42)
[2019-02-06] MEDS ORDERED: FAMOTIDINE 20 MG/50 ML IVPB 20 MG/50 ML MG IVPB ONE ×2 (17:42→17:51)
[2019-02-06] MEDS ORDERED: MAG HYDROX/AL HYDROX/SIMETH 30 ML UNIT-DOSE CUP ONE (17:51)
--- NOTE | 2019-02-06 18:19 | PDOC ---
Documentation entered by Jorge Cowart SCRIBE, acting as scribe for Corrina Lucas DO. Corrina Lucas DO: This documentation has been prepared by the [employer] Daniel, SCRIBE, under my direction and personally reviewed by me in its entirety. I confirm that the documentation accurately reflects all work, treatment, procedures, and medical decision making performed by me. Attending Attestation - Resident Resident Name: Enedelia Montenegro - ED Attending Attestation I have performed the following: I have examined & evaluated the patient, The case was reviewed & discussed with the resident, I agree w/resident's findings & plan, Exceptions are as noted - HPI HPI: 02/06/19 17:58 The patient is a 33 year old female with a past medical history of GERD here today for evaluation of diarrhea. The patient reports that her diarrhea began yesterday after eating breakfast and also notes diffuse abdominal cramping. Patient denies headache, lightheadedness. Denies fever, chills. Denies chest pain, shortness of breath. Denies nausea, vomiting. Allergies: NKA - Physicial Exam PE: 02/06/19 18:07 Constitutional: Awake, alert, oriented. No acute distress. Head: Normocephalic. Atraumatic Eyes: PERRL. EOMI. Conjunctivae are not pale. ENT: Mucous membranes are moist and intact. Posterior pharynx without exudates or erythema. Uvula midline. Neck: Supple. Full ROM. No lymphadenopathy. Cardiovascular: Regular rate. Regular rhythm. S1, S2 regular. Distal pulses are 2+ and symmetric. Pulmonary/Chest: No evidence of respiratory distress. Clear to auscultation bilaterally No wheezing, rales or rhonchi. Abdominal: Soft and non-distended. There is no tenderness. No rebound, guarding or rigidity. No organomegaly. No palpable masses. Good bowel sounds. Back: No CVA tenderness. Musculoskeletal: No edema. No cyanosis. No clubbing. Full range of motion in all extremities. No calf tenderness. Radial/pedal pulses are intact and 2+ bilaterally Skin: Skin is warm and dry. No petechiae. No purpura. Neurological: Alert and oriented to person, place, and time. Cranial nerves II -XII are grossly intact. Normal speech. Strength is grossly symmetric. No sensory deficits. Psychiatric: Good eye contact. Normal interaction, affect and behavior. - Medical Decision Making 02/06/19 18:12 I, Dr. Corrina Lucas, DO, attest that this document has been prepared under my direction and personally reviewed by me in its entirety. I further attest, that it accurately reflects all work, treatment, procedures and medical decision -making performed by me. 02/06/19 18:12 a/p: 33yo female with 2 days of diarrhea -started yesterday, no blood -then today 1 episode of vomiting after drinking lots of water and still with loose stool -no recent travel, no recent abx -ate at a work constitution party prior to the diarrhea -suspect viral vs food poisoning -will cehck labs -pt has been drinking water all day -diarrhea improved today -no abd pain, no nausea now, no vaginal complaitns, no dysuria -will hydrate, check labs, pt is nontoxic in appearance 02/06/19 18:52 no elevated wbc small uti, will start macrobid 02/06/19 18:55 no acute findings on labs low lft values stable for dc to home
[2019-02-06 18:27] LABS: BASO % 0.6 % (0-2.0); EOS % 0.7 % (0-4.5); HEMATOCRIT 40.7 % (32.4-45.2); HEMOGLOBIN 13.7 GM/dL (10.7-15.3); LYMPH % 31.5 % (8-40); MCH 31.8 pg (25.7-33.7); MCHC 33.7 g/dl (32.0-36.0); MEAN CELL VOLUME 94.3 fl (80-96); MEAN PLT VOLUME 8.4 fl (7.5-11.1); MONO % 7.3 % (3.8-10.2); NEUT % 59.9 % (42.8-82.8); RBC 4.32 M/mm3 (3.60-5.2); WHITE BLOOD COUNT 7.3 K/mm3 (4.0-10.0)
[2019-02-06 18:37] LABS: EPI CELLS 6.7 /HPF (0-5/HPF); HYALINE CASTS 9 /lpf (0-8); PH,URINE 5.5 (5.0-8.0); PLATELET COUNT 211 K/MM3 (134-434); URINE APPEARANCE CLEAR; URINE BACTERIA 185.8 /hpf (NEGATIVE); URINE BILIRUBIN NEGATIVE (NEGATIVE); URINE COLOR YELLOW; URINE GLUCOSE (UA) NEGATIVE (NEGATIVE); URINE KETONE 2+ (NEGATIVE); URINE LEUK ESTERASE 2+ (NEGATIVE); URINE NITRITE NEGATIVE (NEGATIVE); URINE PROTEIN NEGATIVE (NEGATIVE); URINE RBC 1 /hpf (0-4); URINE WBC 11 /hpf (0-5)
[2019-02-06 18:52] LABS: ALBUMIN 4.3 g/dl (3.4-5.0); BILIRUBIN,TOTAL 0.9 mg/dL (0.2-1); BLOOD UREA NITROGEN 8.1 mg/dL (7-18); CALCIUM 9.1 mg/dL (8.5-10.1); CREATININE 0.9 mg/dL (0.55-1.3); POTASSIUM 3.6 mmol/L (3.5-5.1); TOT PROT 7.9 g/dl (6.4-8.2)
[2019-02-06 19:41] VITALS: BP 111/73; PULSE 86
== END 2019-02-06 19:42 | disposition home or self-care (01) ==
LOC: JER 16:55
PROC: 3E033GC Introduction of Other Therapeutic Substance into Peripheral Vein, Percutaneous Approach (ICD-10-PCS; principal; 2019-02-06)
DX: N39.0 Urinary tract infection, site not specified (principal); R19.7 Diarrhea, unspecified
CPT/HCPCS: 36415; 80053; 81003; 83690; 84703; 85025; 87086; 99282-25

== ENCOUNTER 2020-05-09 18:41 | Emergency (ER) | payer OTHER ==
--- NOTE | 2020-05-09 18:51 | PDOC ---
Rapid Medical Evaluation Time Seen by Provider: 05/09/20 18:47 Medical Evaluation: Allergies Allergy/AdvReac Type Severity Reaction Status Date / Time No Known Allergies Allergy Verified 02/06/19 17:02 05/09/20 18:48 CC: left 5th digit pain x 2 months, denies injury or LROM Exam: FROM of finger Plan: FT Discharge Disposition - Diagnosis Finger injury - Referrals - Patient Instructions - Post Discharge Activity
[2020-05-09 18:52] VITALS: BP 155/83; PULSE 93; TEMP 98.1; BMI 24.9
--- NOTE | 2020-05-09 19:17 | PDOC ---
History of Present Illness - General Chief Complaint: Pain Stated Complaint: INJURY- LH PINKY DIGIT Time Seen by Provider: 05/09/20 18:47 History Source: Patient - History of Present Illness Occurred: reports: other Severity: reports: moderate Upper Extremity Pain Location: left: 5th finger Past History - Medical History Allergies/Adverse Reactions: Allergies Allergy/AdvReac Type Severity Reaction Status Date / Time No Known Allergies Allergy Verified 05/09/20 18:50 Home Medications: Ambulatory Orders Ranitidine HCl [Zantac] 150 mg PO PRN PRN 14 Days #28 tablet MDD 2 tab 04/10/18 Nitrofurantoin Monohyd/M-Cryst [Macrobid -] 100 mg PO BID 5 Days #10 capsule 02/06/19 COPD: No - Reproductive History Is Patient Now?: No - Psycho-Social/Smoking History Smoking Status: Yes Smoking History: Never smoked Have you smoked in the past 12 months: No Number of Cigarettes Smoked Daily: 3 If you are a former smoker, when did you quit?: 2013 Information on smoking cessation initiated: Yes - Substance Abuse Hx (Audit-C & DAST Scrn) How often the patient has a drink containing alcohol: Never Score: In Men: 4 or > Positive; In Women: 3 or > Positive: 0 Screen Result (Pos requires Nsg. Audit-10AR): Negative In the last yr the pt used illegal drug/Rx for NonMed reason: No Score: Yes response is considered Positive: 0 Screen Result (Positive result requires Nsg. DAST-10): Negative Review of Systems - Review of Systems Constitutional: No: Fever Musculoskeletal: Yes: Joint Pain. No: Joint Swelling Neurological: No: Numbness, Tingling *Physical Exam - Vital Signs Last Vital Signs Temp Pulse Resp BP Pulse Ox 98.1 F 93 H 19 155/83 99 05/09/20 18:47 05/09/20 18:47 05/09/20 18:47 05/09/20 18:47 05/09/20 18:47 - Physical Exam General Appearance: Yes: Appropriately Dressed. No: Apparent Distress HEENT: positive: Normal Voice Neck: positive: Supple Respiratory/Chest: negative: Respiratory Distress Extremity: negative: Tender, Swelling Integumentary: positive: Dry, Warm Neurologic: positive: Fully Oriented, Alert, Normal Mood/Affect Medical Decision Making - Medical Decision Making 05/09/20 19:17 35-year-old female, no significant history here for evaluation for left fifth digit pain for over 3 months of unknown etiology as patient denies any trauma or other obvious inciting factors. States pain throbbing in nature and intermittent. No pain currently. Denies any swelling or sensory changes. Patient well-appearing and stable with unremarkable exam. Will DC with hand follow-up for further evaluation Discharge - Discharge Information Problems reviewed: Yes Clinical Impression/Diagnosis: Finger pain Qualifiers: Laterality: left Qualified Code(s): M79.645 - Pain in left finger(s) Condition: Good Disposition: HOME - Follow up/Referral Referrals: Kamran Valencia DO [Staff Physician] - - Patient Discharge Instructions Additional Instructions: The cause of your finger pain is unclear at this time and you will need further evaluation by a hand specialist. Please call Dr. Valencia of orthopedics in the a.m. to make an appointment - Post Discharge Activity
== END 2020-05-09 19:46 | disposition home or self-care (01) ==
LOC: JERFT 18:41
DX: M79.645 Pain in left finger(s) (principal)
CPT/HCPCS: 99282-25

== ENCOUNTER 2020-06-21 11:12 | Emergency (ER) | payer OTHER ==
[2020-06-21 11:21] VITALS: BP 109/71; PULSE 97; TEMP 97.6; BMI 24.0
[2020-06-21] MEDS ORDERED: ACETAMINOPHEN 500 MG TABLET (FP) PO ONE (11:48)
[2020-06-21] MEDS ORDERED: ACETAMINOPHEN 500 MG TABLET (FP) ONE (11:49)
[2020-06-21 12:10] LABS: EPI CELLS 10 /uL (0-25.1); HYALINE CASTS 0 /uL (0-3.1); URINE APPEARANCE CLOUDY; URINE BACTERIA 108 /uL (0-1359); URINE BILIRUBIN NEGATIVE (NEGATIVE); URINE COLOR YELLOW; URINE GLUCOSE (UA) NEGATIVE (NEGATIVE); URINE KETONE NEGATIVE (NEGATIVE); URINE LEUK ESTERASE 1+ (NEGATIVE); URINE NITRITE NEGATIVE (NEGATIVE); URINE PROTEIN NEGATIVE (NEGATIVE); URINE RBC 2 /uL (0-23.9); URINE UROBILINOGEN 0.2 mg/dL (0.2-1.0); URINE WBC 9 /uL (0-25.8)
[2020-06-21 12:16] LABS: BASO % 0.3 % (0-2.0); EOS % 1.4 % (0-4.5); HEMATOCRIT 38.6 % (32.4-45.2); HEMOGLOBIN 12.9 GM/dL (10.7-15.3); LYMPH % 34.8 % (8-40); MCH 32.2 pg (25.7-33.7); MCHC 33.4 g/dl (32.0-36.0); MEAN CELL VOLUME 96.5 fl (80-96); MEAN PLT VOLUME 7.9 fl (7.5-11.1); MONO % 8.4 % (3.8-10.2); NEUT % 55.1 % (42.8-82.8); PLATELET COUNT 213 K/MM3 (134-434); RBC 4.01 M/mm3 (3.60-5.2); RDW 13.3 % (11.6-15.6); WHITE BLOOD COUNT 5.8 K/mm3 (4.0-10.0)
[2020-06-21 12:34] LABS: POTASSIUM 4.3 mmol/L (3.5-5.1)
[2020-06-21 12:37] LABS: ALBUMIN 3.8 g/dl (3.4-5.0); BLOOD UREA NITROGEN 11.1 mg/dL (7-18); CALCIUM 8.9 mg/dL (8.5-10.1)
[2020-06-21 12:40] LABS: CREATININE 0.7 mg/dL (0.55-1.3)
[2020-06-21 12:42] LABS: BILIRUBIN,TOTAL 0.9 mg/dL (0.2-1); TOT PROT 7.2 g/dl (6.4-8.2)
[2020-06-21] MEDS ORDERED: IBUPROFEN 600 MG TABLET (FP) PO ONE ×2 (12:58→12:59)
== END 2020-06-21 13:02 | disposition home or self-care (01) ==
LOC: JERFT 11:12
DX: S39.011A Strain of muscle, fascia and tendon of abdomen, initial encounter (principal)
CPT/HCPCS: 36415; 80053; 81003; 83690; 85025; 87086; 99283-25

== ENCOUNTER 2020-09-02 11:06 | Emergency (ER) | payer OTHER ==
[2020-09-02 11:14] VITALS: BP 149/105; PULSE 66; TEMP 97.2; BMI 29.2
[2020-09-02] MEDS ORDERED: AMOX TR/POT CLAV 875MG/125MG TABLETS (FP) PO ONE (12:49)
[2020-09-02] MEDS ORDERED: AMOX TR/POT CLAV 875MG/125MG TABLETS (FP) ONE (13:13)
== END 2020-09-02 13:19 | disposition home or self-care (01) ==
LOC: JER 11:06
DX: J01.90 Acute sinusitis, unspecified (principal)
CPT/HCPCS: 99284-25

== ENCOUNTER 2020-10-05 13:56 | Emergency (ER) | payer OTHER ==
[2020-10-05 14:02] VITALS: BP 122/77; PULSE 92; TEMP 98.6; BMI 29.2
== END 2020-10-05 15:08 | disposition home or self-care (01) ==
LOC: JERFT 13:56
DX: K59.00 Constipation, unspecified (principal)
CPT/HCPCS: 99283-25

== ENCOUNTER 2020-10-26 19:50 | Emergency (ER) | payer OTHER ==
[2020-10-26 19:57] VITALS: BP 126/66; PULSE 85; TEMP 98
== END 2020-10-26 20:51 | disposition home or self-care (01) ==
LOC: JER 19:50 → JERFT 19:50 → JER 20:51
DX: H60.332 Swimmer's ear, left ear (principal)
CPT/HCPCS: 99282-25

== ENCOUNTER 2020-12-20 21:05 | Emergency (ER) | payer OTHER ==
[2020-12-20 21:22] VITALS: BP 147/90; PULSE 102; TEMP 98.4; BMI 28.1
[2020-12-20] MEDS ORDERED: ACETAMINOPHEN 325 MG TABLET (FP) PO ONE (22:17)
[2020-12-20] MEDS ORDERED: ACETAMINOPHEN 325 MG TABLET (FP) ONE (22:28)
[2020-12-20 22:49] LABS: BASO % 0.8 % (0-2.0); EOS % 0.5 % (0-4.5); HEMATOCRIT 38.1 % (32.4-45.2); HEMOGLOBIN 13.2 GM/dL (10.7-15.3); MCH 33.1 pg (25.7-33.7); MCHC 34.6 g/dl (32.0-36.0); MEAN CELL VOLUME 95.6 fl (80-96); MEAN PLT VOLUME 8.6 fl (7.5-11.1); MONO % 5.9 % (3.8-10.2); NEUT % 69.8 % (42.8-82.8); PLATELET COUNT 216 K/MM3 (134-434); RBC 3.98 M/mm3 (3.60-5.2); RDW 13.4 % (11.6-15.6); WHITE BLOOD COUNT 10.3 K/mm3 (4.0-10.0)
[2020-12-20 22:56] LABS: INR 1.1 (0.83-1.09); PROTHROMBIN TIME (PATIENT) 13.3 SEC (9.7-13.0)
[2020-12-20 22:58] LABS: ACTIVATED PTT 30.7 SECONDS (25.2-36.5)
[2020-12-20 23:11] LABS: CHLORIDE 107 mmol/L (98-107); SODIUM 140 mmol/L (136-145)
[2020-12-20 23:14] LABS: CALCIUM 9.6 mg/dL (8.5-10.1)
[2020-12-20 23:15] LABS: ALBUMIN 4.5 g/dl (3.4-5.0); ANION GAP 7 MMOL/L (8-16); BLOOD UREA NITROGEN 10.3 mg/dL (7-18); CO2 25 mmol/L (21-32); GLUCOSE,RANDOM 98 mg/dL (74-106); MAGNESIUM 2.1 mg/dL (1.8-2.4)
[2020-12-20 23:18] LABS: CREATININE 0.8 mg/dL (0.55-1.3); SGOT/AST 14 U/L (15-37); SGPT/ALT 14 U/L (13-61)
[2020-12-20 23:20] LABS: BILIRUBIN,TOTAL 0.4 mg/dL (0.2-1); TOT PROT 8.1 g/dl (6.4-8.2)
[2020-12-20 23:21] LABS: ALK PHOS 51 U/L (45-117)
[2020-12-21] MEDS ORDERED: IBUPROFEN 600 MG TABLET (FP) PO ONE ×2 (00:43→00:53)
== END 2020-12-21 03:30 | disposition home or self-care (01) ==
LOC: JER 21:05
DX: R07.89 Other chest pain (principal)
CPT/HCPCS: 36415; 71046-TC-FY; 80053; 83735; 84443; 84484; 84703; 85025; 85379; 85610; 85730; 93005; 93010; 99285-25

== ENCOUNTER 2021-12-11 21:45 | Emergency (ER) | payer OTHER ==
[2021-12-11 21:50] VITALS: BMI 27.4
[2021-12-11 22:00] VITALS: TEMP 98.5
[2021-12-11] MEDS ORDERED: ACETAMINOPHEN 1000 MG/100 ML BAG IVPB ONE (23:19)
[2021-12-11] MEDS ORDERED: SUCRALFATE 1 GM TABLET (FP) PO ONE (23:19)
[2021-12-11] MEDS ORDERED: MAG HYDROX/AL HYDROX/SIMETH 30 ML UNIT-DOSE CUP PO ONE (23:19)
[2021-12-11] MEDS ORDERED: ONDANSETRON 4 MG/2 ML VIAL IVPUSH ONE (23:19)
[2021-12-11] MEDS ORDERED: FAMOTIDINE 20 MG/50 ML IVPB 20 MG/50 ML MG IVPB ONE (23:19)
[2021-12-11] MEDS ORDERED: ONDANSETRON 4 MG/2 ML VIAL ONE (23:39)
[2021-12-11] MEDS ORDERED: SUCRALFATE 1 GM TABLET (FP) ONE (23:39)
[2021-12-11] MEDS ORDERED: MAG HYDROX/AL HYDROX/SIMETH 30 ML UNIT-DOSE CUP ONE (23:39)
[2021-12-11] MEDS ORDERED: FAMOTIDINE 10 MG/ML VIAL IVPB ONE (23:40)
[2021-12-12] MEDS ORDERED: LACTATED RINGERS SOLUTION 1000 ML INFUS.BAG IV ONE (00:03)
[2021-12-12 00:11] LABS: BASO % 0.5 % (0-2.0); EOS % 0.1 % (0-4.5); HEMATOCRIT 37.6 % (32.4-45.2); HEMOGLOBIN 12.7 GM/dL (10.7-15.3); LYMPH % 10.7 % (8-40); MCH 32.1 pg (25.7-33.7); MCHC 33.7 g/dl (32.0-36.0); MEAN CELL VOLUME 95.4 fl (80-96); MEAN PLT VOLUME 8.2 fl (7.5-11.1); MONO % 4.3 % (3.8-10.2); NEUT % 84.4 % (42.8-82.8); PLATELET COUNT 198 10^3/uL (134-434); RBC 3.95 M/mm3 (3.60-5.2); RDW 13.1 % (11.6-15.6); WHITE BLOOD COUNT 12.5 K/mm3 (4.0-10.0)
[2021-12-12 00:32] LABS: CALCIUM 9.1 mg/dL (8.5-10.1)
[2021-12-12 00:33] LABS: ALBUMIN 4.1 g/dl (3.4-5.0); BLOOD UREA NITROGEN 12.2 mg/dL (7-18)
[2021-12-12 00:36] LABS: CREATININE 0.8 mg/dL (0.55-1.3)
[2021-12-12 00:37] LABS: BILIRUBIN,TOTAL 0.3 mg/dL (0.2-1); TOT PROT 7.5 g/dl (6.4-8.2)
[2021-12-12 01:32] LABS: EPI CELLS 13 /uL (0-25.1); HCG,QUALITATIVE URINE Negative; HYALINE CASTS 5 /uL (0-3.1); URINE APPEARANCE CLEAR; URINE BACTERIA >9,000 /uL (0-1359); URINE BILIRUBIN NEGATIVE (NEGATIVE); URINE COLOR YELLOW; URINE GLUCOSE (UA) NEGATIVE (NEGATIVE); URINE KETONE TRACE (NEGATIVE); URINE LEUK ESTERASE 2+ (NEGATIVE); URINE NITRITE POSITIVE (NEGATIVE); URINE PROTEIN 2+ (NEGATIVE); URINE RBC 507 /uL (0-23.9); URINE UROBILINOGEN 0.2 mg/dL (0.2-1.0); URINE WBC 558 /uL (0-25.8)
[2021-12-12 02:35] VITALS: BP 122/76; PULSE 72
== END 2021-12-12 02:36 | disposition home or self-care (01) ==
LOC: JER 21:45
PROC: 3E0333Z Introduction of Anti-inflammatory into Peripheral Vein, Percutaneous Approach (ICD-10-PCS; principal; 2021-12-11)
PROC: 3E033GC Introduction of Other Therapeutic Substance into Peripheral Vein, Percutaneous Approach (ICD-10-PCS; 2021-12-11)
PROC: 3E033GC Introduction of Other Therapeutic Substance into Peripheral Vein, Percutaneous Approach (ICD-10-PCS; 2021-12-11)
DX: N10 Acute pyelonephritis (principal)
CPT/HCPCS: 36415; 76705-TC; 80053; 81003; 83690; 84703; 85025; 99284-25

== ENCOUNTER 2021-12-21 09:22 | Emergency (ER) | payer OTHER ==
[2021-12-21 09:42] VITALS: BMI 27.4
[2021-12-21] MEDS ORDERED: SODIUM CHLORIDE 0.9% 500 ML INFUS.BAG IV ONE (10:31)
[2021-12-21] MEDS ORDERED: FAMOTIDINE 20 MG/50 ML IVPB 20 MG/50 ML MG IVPB ONE (10:31)
[2021-12-21] MEDS ORDERED: ONDANSETRON 4 MG/2 ML VIAL IVPUSH ONE (10:31)
[2021-12-21] MEDS ORDERED: FAMOTIDINE 10 MG/ML VIAL IVPB ONE (10:45)
[2021-12-21] MEDS ORDERED: ONDANSETRON 4 MG/2 ML VIAL ONE (10:45)
[2021-12-21 11:00] LABS: HEMOGLOBIN 13.1 GM/dL (10.7-15.3); MCH 32.8 pg (25.7-33.7); MCHC 34.4 g/dl (32.0-36.0); MEAN CELL VOLUME 95.2 fl (80-96); MEAN PLT VOLUME 7.6 fl (7.5-11.1); PLATELET COUNT 274 10^3/uL (134-434); RBC 3.99 M/mm3 (3.60-5.2); RDW 12.8 % (11.6-15.6); WHITE BLOOD COUNT 13.3 K/mm3 (4.0-10.0)
[2021-12-21 11:05] LABS: EPI CELLS >36 /uL (0-25.1); HCG,QUALITATIVE URINE Negative; HYALINE CASTS 1 /uL (0-3.1); PH,URINE 6.5 (5.0-8.0); URINE APPEARANCE CLEAR; URINE BACTERIA 696 /uL (0-1359); URINE BILIRUBIN NEGATIVE (NEGATIVE); URINE COLOR YELLOW; URINE GLUCOSE (UA) NEGATIVE (NEGATIVE); URINE KETONE 1+ (NEGATIVE); URINE LEUK ESTERASE 1+ (NEGATIVE); URINE NITRITE NEGATIVE (NEGATIVE); URINE PROTEIN TRACE (NEGATIVE); URINE RBC 32 /uL (0-23.9); URINE WBC 33 /uL (0-25.8)
[2021-12-21 11:20] LABS: ALBUMIN 4.1 g/dl (3.4-5.0); BLOOD UREA NITROGEN 11.9 mg/dL (7-18); CALCIUM 9.4 mg/dL (8.5-10.1)
[2021-12-21 11:23] LABS: CREATININE 0.8 mg/dL (0.55-1.3)
[2021-12-21 11:25] LABS: BILIRUBIN,TOTAL 0.7 mg/dL (0.2-1); TOT PROT 7.4 g/dl (6.4-8.2)
[2021-12-21 11:30] LABS: ANISOCYTOSIS 0; HELMET CELLS 0; HOWELL-JOLLY BODIES 0; MACROCYTOSIS 0; OVALOCYTE 0; ROULEAU 0; SICKELED CELLS 0; TARGET CELLS 0; TEAR DROP CELLS 0; TOXIC GRANULATION 0
[2021-12-21] MEDS ORDERED: morphine CARPU-JECT 2 MG/1 ML DISP.SYRIN IVPUSH ONE ×2 (12:04→14:38)
[2021-12-21 15:57] VITALS: BP 110/66; PULSE 76; TEMP 97.8
== END 2021-12-21 15:57 | disposition home or self-care (01) ==
LOC: JER 09:22
PROC: 3E033GC Introduction of Other Therapeutic Substance into Peripheral Vein, Percutaneous Approach (ICD-10-PCS; principal; 2021-12-21)
PROC: 3E033NZ Introduction of Analgesics, Hypnotics, Sedatives into Peripheral Vein, Percutaneous Approach (ICD-10-PCS; 2021-12-21)
PROC: 3E033NZ Introduction of Analgesics, Hypnotics, Sedatives into Peripheral Vein, Percutaneous Approach (ICD-10-PCS; 2021-12-21)
PROC: 3E033GC Introduction of Other Therapeutic Substance into Peripheral Vein, Percutaneous Approach (ICD-10-PCS; 2021-12-21)
DX: K52.9 Noninfective gastroenteritis and colitis, unspecified (principal)
CPT/HCPCS: 36415; 74177-TC; 76830-TC; 80053; 81003; 83690; 84703; 85025; 87086; 99285-25; Q9967

== ENCOUNTER 2022-04-14 06:38 | Emergency (ER) | payer OTHER ==
[2022-04-14 07:19] VITALS: BP 127/79; PULSE 81; RESP 18; TEMP 98.3; BMI 27.8
[2022-04-14] MEDS ORDERED: ACETAMINOPHEN 325 MG TABLET (FP) PO ONE (07:43)
[2022-04-14] MEDS ORDERED: ACETAMINOPHEN 325 MG TABLET (FP) ONE (07:58)
[2022-04-14 08:17] LABS: PH,URINE 8.5 (5.0-8.0); URINE APPEARANCE CLEAR; URINE BILIRUBIN NEGATIVE (NEGATIVE); URINE COLOR YELLOW; URINE GLUCOSE (UA) NEGATIVE (NEGATIVE); URINE KETONE TRACE (NEGATIVE); URINE LEUK ESTERASE NEGATIVE (NEGATIVE); URINE NITRITE NEGATIVE (NEGATIVE); URINE PROTEIN NEGATIVE (NEGATIVE); URINE UROBILINOGEN 0.2 mg/dL (0.2-1.0)
[2022-04-14 08:25] LABS: HCG,QUALITATIVE URINE Negative
[2022-04-14] MEDS ORDERED: IBUPROFEN 400 MG TABLET (FP) PO ONE ×2 (09:24→09:50)
[2022-04-14] MEDS ORDERED: IBUPROFEN 600 MG TABLET (FP) PO ONE (09:49)
[2022-04-14] MEDS ORDERED: LIDOCAINE 5% TOPICAL PATCH TP ONE (11:37)
[2022-04-14] MEDS ORDERED: LIDOCAINE 5% TOPICAL PATCH ONE (11:39)
[2022-04-14] MEDS ORDERED: LIDOCAINE PATCH REMOVAL MC SCH (22:00)
== END 2022-04-14 11:47 | disposition home or self-care (01) ==
LOC: JER 06:38
DX: N83.201 Unspecified ovarian cyst, right side (principal)
CPT/HCPCS: 74176-TC; 81003; 84703; 87086; 99284-25

== ENCOUNTER 2022-08-09 15:17 | Emergency (ER) | payer OTHER ==
[2022-08-09 15:33] VITALS: BP 152/81; PULSE 81; RESP 19; TEMP 98.6; BMI 27.4
[2022-08-09] MEDS ORDERED: KETOROLAC TROMETHAMINE 30 MG/1 ML VIAL IM ONE (15:55)
[2022-08-09] MEDS ORDERED: diazePAM 5 MG TABLET PO ONE (15:55)
[2022-08-09] MEDS ORDERED: diazePAM 5 MG TABLET ONE (15:57)
[2022-08-09] MEDS ORDERED: KETOROLAC TROMETHAMINE 30 MG/1 ML VIAL ONE (15:57)
== END 2022-08-09 16:27 | disposition home or self-care (01) ==
LOC: JERFT 15:17
PROC: 3E023GC Introduction of Other Therapeutic Substance into Muscle, Percutaneous Approach (ICD-10-PCS; principal; 2022-08-09)
DX: M54.41 Lumbago with sciatica, right side (principal)
CPT/HCPCS: 99284-25

== ENCOUNTER 2022-08-14 09:15 | Emergency (ER) | payer OTHER ==
[2022-08-14 09:24] VITALS: BP 121/76; PULSE 101; RESP 20; TEMP 98.2; BMI 27.4
[2022-08-14] MEDS ORDERED: ACETAMINOPHEN 1000 MG/100 ML BAG IVPB ONE (12:19)
[2022-08-14] MEDS ORDERED: SODIUM CHLORIDE 0.9% 1000 ML INFUS.BAG IV ONE (12:19)
[2022-08-14 12:47] LABS: HEMATOCRIT 37.4 % (32.4-45.2); HEMOGLOBIN 12.6 GM/dL (10.7-15.3); LYMPH % 33.2 % (8-40); MCH 32.8 pg (25.7-33.7); MCHC 33.7 g/dl (32.0-36.0); MEAN CELL VOLUME 97.4 fl (80-96); MONO % 8.5 % (3.8-10.2); NEUT % 55.3 % (42.8-82.8); PLATELET COUNT 272 10^3/uL (134-434); RBC 3.84 M/mm3 (3.60-5.2); RDW 13.1 % (11.6-15.6); WHITE BLOOD COUNT 6.9 K/mm3 (4.0-10.0)
[2022-08-14 12:50] LABS: EPI CELLS >36 /uL (0-25.1); HYALINE CASTS 0 /uL (0-3.1); URINE APPEARANCE CLOUDY; URINE BACTERIA 822 /uL (0-1359); URINE BILIRUBIN NEGATIVE (NEGATIVE); URINE COLOR YELLOW; URINE GLUCOSE (UA) NEGATIVE (NEGATIVE); URINE KETONE NEGATIVE (NEGATIVE); URINE LEUK ESTERASE TRACE (NEGATIVE); URINE NITRITE NEGATIVE (NEGATIVE); URINE PROTEIN NEGATIVE (NEGATIVE); URINE RBC 7 /uL (0-23.9); URINE UROBILINOGEN 0.2 mg/dL (0.2-1.0); URINE WBC 28 /uL (0-25.8)
[2022-08-14 12:53] LABS: INR 1.06 (0.83-1.09); PROTHROMBIN TIME (PATIENT) 12.2 SEC (9.7-13.0)
[2022-08-14 12:56] LABS: ACTIVATED PTT 30.7 SECONDS (25.2-36.5)
[2022-08-14 12:57] LABS: HCG,QUALITATIVE URINE Negative
[2022-08-14 13:13] LABS: CALCIUM 9.5 mg/dL (8.5-10.1)
[2022-08-14 13:14] LABS: BLOOD UREA NITROGEN 10.2 mg/dL (7-18)
[2022-08-14 13:17] LABS: CREATININE 0.7 mg/dL (0.55-1.3)
[2022-08-14] MEDS ORDERED: KETOROLAC TROMETHAMINE 30 MG/1 ML VIAL IVPUSH ONE (15:38)
[2022-08-14] MEDS ORDERED: KETOROLAC TROMETHAMINE 30 MG/1 ML VIAL ONE (15:47)
== END 2022-08-14 15:58 | disposition home or self-care (01) ==
LOC: JERFT 09:15
PROC: 3E033GC Introduction of Other Therapeutic Substance into Peripheral Vein, Percutaneous Approach (ICD-10-PCS; principal; 2022-08-14)
DX: N83.201 Unspecified ovarian cyst, right side (principal)
CPT/HCPCS: 0241U-QW; 36415; 74177-TC; 76830-TC; 80048; 81003; 84703; 85025; 85610; 85730; 86850; 86900; 86901; 87086; 99285-25; Q9967

== ENCOUNTER 2023-04-05 20:34 | Emergency (ER) | payer OTHER ==
[2023-04-05 20:39] VITALS: BP 137/88; PULSE 82; RESP 18; TEMP 98.2; BMI 27.4
[2023-04-05] MEDS ORDERED: IBUPROFEN 400 MG TABLET (FP) PO ONE ×2 (21:15→21:20)
== END 2023-04-05 21:47 | disposition home or self-care (01) ==
LOC: JERFT 20:34
DX: M79.674 Pain in right toe(s) (principal); L84 Corns and callosities; R22.31 Localized swelling, mass and lump, right upper limb; W22.03XA Walked into furniture, initial encounter; Y92.512 Supermarket, store or market as the place of occurrence of the external cause
CPT/HCPCS: 73660-TC-FY; 99283-25

== ENCOUNTER 2023-04-21 19:39 | Emergency (ER) | payer OTHER ==
[2023-04-21 19:44] VITALS: PULSE 85; RESP 16; TEMP 98.2; BMI 27.4
[2023-04-21 21:15] VITALS: BP 157/81
== END 2023-04-21 21:15 | disposition home or self-care (01) ==
LOC: JERFT 19:39
DX: R03.0 Elevated blood-pressure reading, without diagnosis of hypertension (principal); R51.9 Headache, unspecified
CPT/HCPCS: 93005; 93010; 99283-25